=== PATIENT | female | born 1965 | race Native Hawaiian/Other Pacific Islander ===

== ENCOUNTER → 2024-07-11 09:46 | Outpatient (CLI) | payer OTHER, SELFPAY ==
[2024-07-11 10:52] LABS: Add Manual Diff / Slide Review NO; Basophils Absolute Auto 0 /uL (0-100); Basophils Percent Auto 0.2 % (0-2); Eosinophils Absolute Auto 200 /uL (0-450); Eosinophils Percent Auto 3.6 % (2-4); Hematocrit 43.8 % (36-46); Hemoglobin 14.7 g/dL (12.0-16.0); Lymphocytes Absolute Auto 1300 /uL (1100-4500); Lymphocytes Percent Auto 22.2 % (25-40); Mean Corpuscular HGB Conc 33.6 % (30-36); Mean Corpuscular Hemoglobin 31.7 PG (26-34); Mean Corpuscular Volume 94.2 fL (80-100); Monocytes Absolute Auto 400 /uL (0-900); Monocytes Percent Auto 6.7 % (3-14); Neutrophils Absolute Auto 3900 /uL (1500-7000); Neutrophils Percent Auto 67.3 % (50-75); Platelet Count 196 X10^3/uL (150-400); Red Blood Cell Count 4.65 X10^6/uL (4.0-5.2); Red Cell Distribution Width 12.9 % (11.6-14.8); White Blood Cell Count 5.7 X10^3/uL (4.5-11.0)
[2024-07-11 11:19] LABS: Alanine Aminotransferase 47 IU/L (<35); Albumin 4.4 g/dL (3.5-5.0); Albumin Globulin Ratio 1.2 (1.0-2.8); Alkaline Phosphatase 82 U/L (38-126); Aspartate Aminotransferase 46 IU/L (14-36); BUN Creatinine Ratio 21.4 (6-22); Bilirubin Total 0.7 mg/dL (0.2-1.3); Blood Urea Nitrogen 24 mg/dL (7-17); Calcium 9.9 mg/dL (8.4-10.2); Carbon Dioxide 28 mmol/L (22-32); Chloride 101 mmol/L (98-107); Cholesterol 277 mg/dL (140-199); Estimated Glomerular Filt Rate 56 mL/min (>60); Globulin 3.7 g/dL (1.7-4.1); Glucose 105 mg/dL (80-110); HDL Cholesterol 89 mg/dL (40-60); HEMOLYSIS < 15 (0-50); LDL Cholesterol Calculated 176 mg/dL (<100); Potassium 4.5 mmol/L (3.4-5.1); Sodium 138 mmol/L (137-145); Total Protein 8.1 g/dL (6.3-8.2); Triglycerides 62 mg/dL (35-150)
[2024-07-11 11:25] LABS: Hemoglobin A1C% w Est Avg Glu 5.3 % (4.0-6.0)
== END ==
PROVIDERS: PCP Family Medicine; Referring Provider Family Medicine; Visit Provider Family Medicine
DX: E78.00 Pure hypercholesterolemia, unspecified (principal); Z68.33 Body mass index [BMI] 33.0-33.9, adult; Z76.89 Persons encountering health services in other specified circumstances; R20.0 Anesthesia of skin; R73.03 Prediabetes
CPT/HCPCS: 36415; 80053; 80061; 83036; 85025